=== PATIENT | male | born 2000 | race Caucasian/White ===

== ENCOUNTER 2022-04-27 10:49 | Outpatient (REF) | payer OTHER, SELFPAY ==
[2022-04-27 14:27] LABS: Hematocrit 47.6 % (42.0-52.0); Hemoglobin 16.2 g/dl (14.0-18.0); Mean Corpuscular Hemoglobin 27.9 pg (27.0-33.0); Mean Corpuscular Volume 81.9 fL (80.0-98.0); Mean Platelet Volume 11.7 fL (9.4-12.4); Platelet Count 257 X10*3/uL (160-400); Red Blood Count 5.81 X10*6/uL (4.60-5.80); Red Cell Distribution Width 13.3 % (11.0-16.0); White Blood Count 5.6 X10*3/uL (4.8-10.8)
[2022-04-27 15:08] LABS: Alanine Aminotransferase 21 U/L (0-40); Albumin Level 4.8 g/dL (3.5-5.0); Alkaline Phosphatase 80 U/L (39-117); Anion Gap 14 (12-20); Aspartate Amino Transferase 23 U/L (5-37); Bilirubin Total 1.5 mg/dL (0.0-1.0); Blood Urea Nitrogen 10 mg/dL (9-16); Calcium 10.2 mg/dL (8.4-10.2); Carbon Dioxide 28 mmol/L (22-29); Chloride 105 mmol/L (96-108); Cholesterol 141 mg/dL; Estimated Glomerular Filt Rate > 60; Glucose Fasting 95 mg/dL (60-99); HDL Cholesterol 58 mg/dL; LDL Cholesterol Calculated 76 mg/dl; Potassium 4.8 mmol/L (3.3-5.1); Sodium 142 mmol/L (135-145); Total Protein 7.7 g/dL (6.5-8.0); Triglycerides 36 mg/dL
[2022-04-27 15:13] LABS: TSH reflex Free T4 1.21 uIU/mL (0.32-4.0)
== END 2022-04-27 10:50 | disposition home or self-care (01) ==
LOC: HO.WFDLDS 10:49
PROVIDERS: Visit Provider Hospitalist
DX: Z00.00 Encounter for general adult medical examination without abnormal findings (principal)
CPT/HCPCS: 36415; 80053; 80061; 84443; 85027

== ENCOUNTER → 2022-05-10 13:54 | Outpatient (BNVA) | payer OTHER, SELFPAY | PROVIDERS: PCP Hospitalist; Visit Provider Physician Assistant | DX: D12.6 Benign neoplasm of colon, unspecified (principal); Z78.9 Other specified health status | CPT/HCPCS: 99202 ==

== ENCOUNTER 2022-10-20 15:02 | Outpatient (AMB) | payer OTHER, SELFPAY ==
--- NOTE | 2022-10-20 14:33 | A.OFFPC_ITS ---
Vital Signs 10/20/22 15:06 Height 5 ft 9 in Weight 162 lb 2 oz BMI 23.9 BP 122/74 Blood Pressure Location Lt brachial Position Sitting Respiration 12 Pulse 97 Pulse Source Pulse Oximeter Temp 98.7 F Temp Source Temporal Artery Scan Pulse Oximetry (%) 99 Oxygen Delivery Method Room Air Intake Visit Reasons: fu for ulcer colitis and weight Intake Note: Patient states he tried to go to Gastroenterology and wasnt seen there due to them not having an recycling operator. Bottle House Cleaners Supervisor Required: Yes Bottle House Cleaners Supervisor Name: Alberto ([id number]) Accompanied by: Self / Same As Patient Allergies No Known Allergies Allergy (Verified 10/20/22 15:22) Medication List - Last Reconciled 10/20/22 by Rhianna Palomares CNP bisacodyl (Dulcolax (bisacodyl)) 10 mg (2 x 5 mg) PO ONCE 1 day Tobacco use date assessed: 04/27/22 Dental Screening Dental Screen Date: 10/20/22 Did you have a dental visit in the last 12 months?: No Did you have a dental problem in the last 6 months where you did not have access to dental care?: No Was dental information given to patient?: Yes HPI HPI Comments History of Present Illness Details 22-year-old Somali-speaking male presents with complaints of intermittent right sided abdominal pain. He notes the pain is intermittent, started earlier this year, but has been more frequent in the past 2 months. He states the pain is sharp. He notes his symptoms do not occur every day. He denies He denies n/v/d, constipation, or me tala. He denies acute symptoms at this time. He established care with his PCP here on April 2022. 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 He was referred to [facility] and was seen in May 2022. He had no GI or general complaints during his recent GI visit. GI planned to schedule polyp surveillance. The patient is a poor historian for his PCP and GI. The hospice office coordinator contacted [facility] and was informed the pt refused doing a colonoscopy in September. He notes he declined testing because he already had it done in the [place]. He notes that sometime last month and this month, he attempted to call GI to reschedule but there was no cordwainer available for him to schedule the appointment. [facility] Medical History (Updated 10/20/22 @ 15:42 by Rhianna Palomares CNP) Ulcerative colitis with rectal bleeding Surgical History Hx of colonoscopy Family History Father Diabetes Maternal Uncle Colon cancer Social History Household Members: Family Housing: House (live with family) Alcohol intake: never Patient Tobacco Use Status: Never used Tobacco e-Cigarette/Vaping Use: Never Used service: No Current occupational status: unemployed Cognitive needs: No Hearing needs: No Vision needs: No Questionnaire Thrive Questionnaire Date Thrive assessed: 04/27/22 TELLO-7 AMB Questionnaire TELLO-7 Date TELLO - 7 assessed: 04/27/22 Source: Developed by Drs. Willy Mendoza, Lucrecia Beauchamp, Danny Solares and colleagues, with an educational darrius from [employer]. Review of Systems Const Details: Const Denies chills, Denies fatigue, Denies fever(s), Denies headache(s) and Denies weakness ENT Denies dizziness and Denies headache(s) Card Denies chest pain, Denies lightheadedness, Denies dyspnea and Denies other (Palpitations) Resp Denies cough, Denies dyspnea, Denies wheezing and Denies other ( shortness of b reath) GI Denies abdominal pain, Denies melena, Denies hematochezia, Denies change in bowel habits, Denies dyspepsia and Denies nausea Denies hematuria and Denies dysuria Musc Denies abnormal gait, Denies myalgias, Denies arthralgias, Denies numbness and Denies tingling Skin/Breast Denies rash, Denies unusual bruising and Denies wounds Neuro Denies abnormal gait, Denies dizziness, Denies headache(s), Denies memory loss, Denies numbness, Denies Sensory deficit (Neuro), Denies tingling and Denies weakness Psych Denies anxiety, Denies depression, Denies memory loss Endo Denies cold intolerance, Denies fatigue, Denies heat intolerance, Denies polydipsia and Denies polyuria Aller/Immun Denies wheezing Physical exam (Primary Care) Tobacco/Smoking Status: Tobacco use Status Tobacco use date assessed 04/27/22 10/20/22 14:35 Patient Tobacco Use Status Never used Tobacco 10/20/22 14:35 e-Cigarette/Vaping Use Never Used 10/20/22 14:35 Thrive Assessment: Date of Thrive Assessment Date Thrive assessed 04/27/22 10/20/22 14:35 Const Other: General: no acute distress and well developed Nutritional Appearance: well nourished Orientation/consciousness: patient oriented x3 HENMT Head: Yes normocephalic and Yes atraumatic Eyes General: appearance normal, both eyes and all related structures Pupils: Equal, round and reactive pupils present EOM: EOMs intact bilaterally Resp Effort & Inspection: normal respiratory effort Auscultation: clear to auscultation bilaterally Cardio Rate: regular rate Rhythm: regular rhythm Heart sounds: S1 normal heart sound present, S2 normal heart sound present, no gallops, no murmurs and no rubs GI Palpation (GI): No Abdominal aortic bruit present, Soft to palpation, nontender, No hepatosplenomegaly present and No Rebound tenderness present Auscultation: normal bowel sounds General: Yes no CVA tenderness Back/Spine/Pelvis Back: no CVA tenderness Cervical Spine: cervical ROM normal and No Cervical spine tenderness Thoracic/Lumbar Spine: thoraco-lumbar ROM normal, No pain with thoraco-lumbar ROM, No thoracic spinal tenderness and No lumbar spinal tenderness Extrem General: Yes normal to inspection, No edema and No calf tenderness Skin General: warm and dry. Normal skin color. Normal skin turgor Lesions: no lesions Rashes: no rashes Trauma: no lacerations or abrasions Wounds: no wounds Nails: normal Neuro General: patient oriented x3, gait normal and no focal neuro deficit Cranial nerves: Yes Equal, round and reactive pupils present Cognition (Neuro): normal cognition Gait exam (Neuro): Normal gait present Sensory Exam: No Sensory deficit (Neuro) Psych Appearance: grossly normal Affect: normal affect Attitude: cooperative Thought process: Normal thought process present Assessment and Plan Assessment & Plan (1) Abdominal pain: Code(s): R10.9 - Unspecified abdominal pain Plan: 22-year-old Somali-speaking male presents with complaints of intermittent right sided abdominal pain. He notes the pain is intermittent, started earlier this year, but has been more frequent in the past 2 months. He states the pain is sharp. He notes his symptoms do not occur every day. He denies He denies n/v/d, constipation, or melena. He denies acute symptoms at this time. The OA here will assist the patient in schedule an appointment with [facility] He is encouraged to follow-up with GI as planned Follow-up with PCP with new or worsening symptoms Verbalized understanding and agreed with treatment plan. cordwainer was utilized via electronic tablet. Medications: Refilled bisacodyl (Dulcolax (bisacodyl)) Take 2 tablets by mouth at 12:00pm the day before your procedure. 10 mg (2 x 5 mg) PO ONCE 1 day 2 tabs 0RF colonoscopy prep Z12.11 - Encounter for screening for malignant neoplasm of colon Coding Level of Care Code Est Pt Level 3 (32033) Diagnoses Abdominal pain R10.9
[2022-10-20 15:06] VITALS: BP 122/74; PULSE 97; RESP 12; TEMP 37.1; O2SAT 99; BMI 23.9
== END 2022-10-20 15:49 | disposition home or self-care (01) ==
PROVIDERS: PCP Hospitalist; Visit Provider Nurse Practitioner Family
DX: R10.9 Unspecified abdominal pain (principal)
CPT/HCPCS: 99213

== ENCOUNTER 2022-11-14 10:27 | Outpatient (AMB) | payer OTHER, SELFPAY ==
--- NOTE | 2022-11-14 10:26 | A.OFFVIS_ITS ---
Intake Vital Signs 11/14/22 10:27 Height 5 ft 9 in Weight 162 lb BMI 23.9 BP 118/80 Blood Pressure Location Lt brachial Position Sitting Intake Visit Reasons: pt req follow up Intake Note: Patient here for follow up. CC: Intermittent right sided abdominal pain. Patient reports this has been on and off for approximately 4-5 months. Patient reports the worse pain is a 5/10. Allergies No Known Allergies Allergy (Verified 11/14/22 10:28) Medication List - Last Reconciled 11/14/22 by Liberty Delgado RN HPI HPI Comments History of Present Illness Details A 22 y/o male seen 05/2022-was to be scheduled for 1 year repeat colonoscopy-he instead went to [place] He had repeat colonoscopy 06/2022- [place]-path shows chronic colitis with edema-he was given an unknown medication-for 1 month- He now has intermittent RLQ pain-was QOD- but now not too much- [facility] Medical History (Updated 11/14/22 @ 11:06 by Sita Cota PA-C) Ulcerative colitis with rectal bleeding Surgical History (Updated 11/14/22 @ 11:01 by Sita Cota PA-C) Hx of colonoscopy Family History Father Diabetes Maternal Uncle Colon cancer Social History Household Members: Family Housing: House Alcohol intake: never Patient Tobacco Use Status: Never used Tobacco e-Cigarette/Vaping Use: Never Used service: No Current occupational status: unemployed Cognitive needs: No Hearing needs: No Vision needs: No Physical Exam Vital Signs: Last Vital Signs BP 118/80 11/14/22 10:27 BMI result Body Mass Index 23.9 Const General: healthy appearing, comfortable and no acute distress Orientation/consciousness: patient oriented x3 Limitations: language barrier and other limitations (Poor historian) Eyes Sclerae: sclerae normal Resp Effort & Inspection: normal respiratory effort and able to speak in complete sentences Auscultation: clear to auscultation bilaterally, no rales, no rhonchi and no wheezes Cardio Rate: regular rate and tachycardic (APR 104) Heart sounds: S1 normal heart sound present and S2 normal heart sound present GI Palpation (GI): Soft to palpation, nontender and no guarding Auscultation: normal bowel sounds Skin General skin exam: no rashes or lesions noted Neuro General: patient oriented x3 Extrem General: Yes full ROM Psych Appearance: grossly normal and well kempt Assessment & Plan Assessment & Plan (1) Ulcerative colitis with rectal bleeding: Comment: GI history unclear patient unable to give details With help of Tristanian interpretation- Reviewed procedure report pathology-copies to go to chart Code(s): K51.911 - Ulcerative colitis, unspecified with rectal bleeding Plan: Follow-up with MD for plan of care (2) Poor historian: Comment: Review history not consistent with previous history given with PCP-details are unclear On physical exam abdomen soft, nontender- Code(s): Z78.9 - Other specified health status (3) Abdominal pain: Comment: History tubulovillous adenoma 322, history of chronic colitis for 2022- Unknown treatment, patient unable to give details- Not great historian Needs further assessment- Will update labs Scheduled to be seen by MD that treats IBD Patient instructed to bring along procedure reports with pathology as well as medication list Code(s): R10.9 - Unspecified abdominal pain Plan Please schedule new patient visit for colitis with MD, Dr. Maddy OSUNA or Dr. Castañeda- needs energy trading analyst, 30 minutes, not a great historian Patient instructed to bring medication along with him Reports and pathology as well Orders: Orders Comprehensive Met. Panel Today K51.911 - Ulcerative colitis, unspecified with rectal bleeding C Reactive Protein Today K51.911 - Ulcerative colitis, unspecified with rectal bleeding Erythrocyte Sedimentation Rate Today K51.911 - Ulcerative colitis, unspecified with rectal bleeding Complete Blood Count Auto Diff Today K51.911 - Ulcerative colitis, unspecified with rectal bleeding Patient Instructions: Labs today CBC CMP Patient instructed to bring medications along with him Reports and pathology as well Coding Level of Care Code Est Pt Level 4 (96699) Diagnoses Ulcerative colitis with rectal bleeding K51.911 Poor historian Z78.9 Abdominal pain R10.9 Time Spent (min) 20
[2022-11-14 10:27] VITALS: BP 118/80; BMI 23.9
== END 2022-11-14 10:43 | disposition home or self-care (01) ==
PROVIDERS: PCP Hospitalist; Visit Provider Physician Assistant
DX: K51.911 Ulcerative colitis, unspecified with rectal bleeding (principal); Z78.9 Other specified health status; R10.9 Unspecified abdominal pain
CPT/HCPCS: 99214

== ENCOUNTER → 2022-11-14 10:27 | Outpatient (BNVA) | payer OTHER, SELFPAY | PROVIDERS: PCP Hospitalist; Visit Provider Physician Assistant | DX: K51.911 Ulcerative colitis, unspecified with rectal bleeding (principal); R10.9 Unspecified abdominal pain; Z78.9 Other specified health status | CPT/HCPCS: 99212 ==

== ENCOUNTER 2022-11-14 11:04 | Outpatient (REF) | payer OTHER, SELFPAY ==
[2022-11-14 14:30] LABS: MANUAL DIFF FLAG NO
[2022-11-14 14:45] LABS: Basophils Percent Auto 0.4 % (0-2); Eosinophils Absolute Auto 0.1 X10*3/uL (0.0-0.4); Eosinophils Percent Auto 1.5 % (0-4); Hematocrit 48.5 % (42.0-52.0); Hemoglobin 16.3 g/dl (14.0-18.0); Imm Gran Abs Auto 0.01 X10*3/uL (0.00-0.03); Imm Gran Pct Auto 0.2 % (0.0-0.4); Lymphocytes Absolute Auto 1.9 X10*3/uL (1.2-4.9); Mean Corpuscular HGB Conc 33.6 g/dl (31.0-36.0); Mean Corpuscular Hemoglobin 27.5 pg (27.0-33.0); Mean Corpuscular Volume 81.9 fL (80.0-98.0); Mean Platelet Volume 12.1 fL (9.4-12.4); Monocytes Absolute Auto 0.5 X10*3/uL (0.1-1.2); Monocytes Percent Auto 9.5 % (2-11); Neutrophils Absolute Auto 2.9 x10*3/uL (2.0-8.3); Neutrophils Percent Auto 53.4 % (45-73); Platelet Count 222 X10*3/uL (160-400); Red Blood Count 5.92 X10*6/uL (4.60-5.80); Red Cell Distribution Width 13.4 % (11.0-16.0); White Blood Count 5.5 X10*3/uL (4.8-10.8)
[2022-11-14 15:27] LABS: Erythrocyte Sedimentation Rate 5 MM/HR (0-15)
[2022-11-14 15:28] LABS: Alanine Aminotransferase 28 U/L (0-40); Albumin Level 4.9 g/dL (3.5-5.0); Alkaline Phosphatase 75 U/L (39-117); Anion Gap 12 (12-20); Aspartate Amino Transferase 37 U/L (5-37); Bilirubin Total 0.8 mg/dL (0.0-1.0); Blood Urea Nitrogen 11 mg/dL (9-16); C Reactive Protein 1.08 mg/dL (< or = 0.50); Calcium 10.5 mg/dL (8.4-10.2); Carbon Dioxide 29 mmol/L (22-29); Chloride 104 mmol/L (96-108); Estimated Glomerular Filt Rate > 60; Glucose Random 90 mg/dL (60-115); Potassium 4.1 mmol/L (3.3-5.1); Sodium 141 mmol/L (135-145); Total Protein 8.2 g/dL (6.5-8.0)
== END 2022-11-14 11:05 | disposition home or self-care (01) ==
LOC: HO.WFDLDS 11:04
PROVIDERS: Visit Provider Physician Assistant
DX: K51.911 Ulcerative colitis, unspecified with rectal bleeding (principal)
CPT/HCPCS: 36415; 80053; 85025; 85652; 86140

== ENCOUNTER 2022-12-04 11:23 | Outpatient (AMB) | payer OTHER, SELFPAY ==
--- NOTE | 2022-12-04 11:27 | A.OFFVIS_ITS ---
Intake Vital Signs 12/04/22 11:31 Height 5 ft 9 in Weight 160 lb 14.999 oz BMI 23.8 BP 131/73 Blood Pressure Location Lt brachial Position Sitting Pulse 113 H Intake Visit Reasons: ? UC - 2nd Opinion Intake Note: Miguel presents in the office as a follow up for UC - 2nd opinion. 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 Pt reports having bleeding from rectum x 1 year. Apr 2021: Had a colo which showed a large polyp in the rectum ?? 5 cm in size per the report from which biopsies were taken. Path showed tubullovillous adenoma. May 2021: subsequently had surgical resection of that polyp through Dr Hollis Mann (colorectal surgery). Was asked to return within a year for repeat colo. June 2022: Focal redness in rectum spanning 5-7 cm (vs 5-7 cm from anal verge - unclear based on wording) which was biopsied - chronic mild nonspecific colitis. 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 Currently, does not report any abd pain, rectal pain, blood on defecation. Has formed BMs 1-2 times a day. No night time sx. No urgency. Labs from last month without any anemia. Fam hx of CRC in uncle but not in first degree relatives. No fam hx of UC or IBD in FDRs. PFSH Medical History Ulcerative colitis with rectal bleeding Surgical History Hx of colonoscopy Family History Father Diabetes Maternal Uncle Colon cancer Social History Household Members: Family Housing: House Alcohol intake: never Patient Tobacco Use Status: Never used Tobacco e-Cigarette/Vaping Use: Never Used service: No Current occupational status: unemployed Cognitive needs: No Hearing needs: No Vision needs: No Review of Systems Const All systems reviewed & are unremarkable except as noted in HPI and below Physical Exam Vital Signs: Last Vital Signs Pulse 113 H 12/04/22 11:31 BP 131/73 12/04/22 11:31 BMI result Body Mass Index 23.8 Gen appear: NAD HEENT: nonicteric, no cervical lymphadenopathy Chest: CTA CVS: Regular S1/S2 Abd: soft, nontender, nondistended, bowel sounds + Ext: no peripheral edema Neuro: A/Ox3, noted to move all extremities spontaneously Psych: interacting appropriately Assessment & Plan Assessment & Plan (1) Villous adenoma: Code(s): D48.9 - Neoplasm of uncertain behavior, unspecified (2) Ulcerative colitis with rectal bleeding: Code(s): K51.911 - Ulcerative colitis, unspecified with rectal bleeding Plan Reports of the colonoscopies + path in Arabic were reviewed with the help of toolroom checker and the language does not seem to be clear on the follow up colonoscopy re the area of redness if that is present at the site of previous polyp/surgery vs new finding. 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 Will only need a flex sig as abnormality was present in distal rectum. In the meantime, labs ordered including fecal calpro, hep serologies and TSPOT in case UC confirmed to allow for medical management. Plan: - Flex sig in the next few weeks - Labs ordered - Follow up after flex sig. Orders: Orders Thiopurine Methyltransferase Today K5 - Ulcerative colitis, unspecified with rectal bleeding Hepatitis B Core Antibody Today K5 - Ulcerative colitis, unspecified with rectal bleeding Hepatitis B Surface Antigen Today K5 - Ulcerative colitis, unspecified with rectal bleeding HIV Ab/Ag Today K5 - Ulcerative colitis, unspecified with rectal bleeding T Spot TB Today K5 - Ulcerative colitis, unspecified with rectal bleeding Calprotectin, Fecal Today K5 - Ulcerative colitis, unspecified with rectal bleeding C Reactive Protein Today K5 - Ulcerative colitis, unspecified with rectal bleeding Immunoglobulin A Today K5 - Ulcerative colitis, unspecified with rectal bleeding Transglutaminase IgA Today K5 - Ulcerative colitis, unspecified with rectal bleeding Hepatitis A IgG Today - Ulcerative colitis, unspecified with rectal bleeding Hepatitis B Surface Antibody Today K5 - Ulcerative colitis, unspecified with rectal bleeding Hepatitis B Viral DNA Qn Today - Ulcerative colitis, unspecified with rectal bleeding Hepatitis C Antibody Today - Ulcerative colitis, unspecified with rectal bleeding Medications: New sodium phosphates 19-7 gram/118 mL (Fleet Enema) 118 mL FL BEDTIME 133 mL 0RF sigmoidoscopy Coding Level of Care Code Est Pt Level 4 (62232) Diagnoses Villous adenoma D48.9 Ulcerative colitis with rectal bleeding K5
[2022-12-04 11:31] VITALS: BP 131/73; PULSE 113; BMI 23.8
== END 2022-12-04 12:44 | disposition home or self-care (01) ==
PROVIDERS: PCP Hospitalist; Visit Provider Internal Medicine
DX: D48.9 Neoplasm of uncertain behavior, unspecified (principal); K51.911 Ulcerative colitis, unspecified with rectal bleeding
CPT/HCPCS: 99214

== ENCOUNTER → 2022-12-04 11:23 | Outpatient (BNVA) | payer OTHER, SELFPAY | PROVIDERS: PCP Hospitalist; Visit Provider Internal Medicine | DX: K51.911 Ulcerative colitis, unspecified with rectal bleeding (principal); D48.9 Neoplasm of uncertain behavior, unspecified | CPT/HCPCS: 99212 ==

== ENCOUNTER 2023-02-06 10:12 | Day surgery (SDC) | payer OTHER, SELFPAY ==
[2023-02-06 10:43] VITALS: BP 139/79; PULSE 102; RESP 20; TEMP 36.1; O2SAT 97
[2023-02-06 10:44] VITALS: BMI 25.3
--- NOTE | 2023-02-06 10:47 | HO.ANESPROP2 ---
HPI - Anesthesia Eval Consult details Narrative: Flex sig for rectal bleeding PMFSH Active Problems Active Problems: All Active Problems (Updated 12/04/22 @ 16:33 by Rupali Zamora MD) Villous adenoma (Acute) Abdominal pain (Acute) Poor historian (Acute) Abnormal colonoscopy (Acute) Elevated bilirubin (Acute) Normal physical exam (Acute) Ulcerative colitis with rectal bleeding (Acute) Past Medical History Medical History Ulcerative colitis with rectal bleeding Family History Family History Father Diabetes Maternal Uncle Colon cancer Family history of problems with anesthesia: No Surgical History Surgical History Hx of colonoscopy History of Problems with Anesthesia: No Social History Social History Household Members: Family Housing: House Alcohol intake: never Patient Tobacco Use Status: Never used Tobacco e-Cigarette/Vaping Use: Never Used Advance Directives: No Advance Directives Information Provided: Yes service: No Current occupational status: unemployed Cognitive needs: No Hearing needs: No Vision needs: No Meds Allergies Allergy/AdvReac Type Severity Reaction Status Date / Time No Known Allergies Allergy Verified 12/04/22 11:32 Exam Height,Weight and Vital Signs: Last Vital Signs Temp 97 F 02/06/23 10:43 Pulse 102 H 02/06/23 10:43 Resp 20 02/06/23 10:43 BP 139/79 02/06/23 10:43 Pulse Ox 97 02/06/23 10:43 O2 Del Method Room Air 02/06/23 10:43 Airway Mallampati Class: II TM Dist: >3cm Heart: rrr Lungs: cta Assessment and Plan Assessment Anesthesia Assessment: Anesthesia Plan Discussed and Chart Reviewed Final Anesthetic Review Family History of Problems with Anesthesia: No History of Problems with Anesthesia: No NPO: Yes ASA Class: II Final Preanesthetic Review: No Changes in Pt Med Stat, Meds/Allgs Chart Reviewed, Consent Obtained/Reviewed and Anes Risks/Benef Reviewed Patient Risk: Low Procedure Risk: Low Anesthetic Plan Anesthetic Plan: MAC: and Agree w/ Assess. and Plan Disposition: Standard PACU
[2023-02-06] MEDS: Sodium Phosphate,Mono-Dibasic 133 ML ENEMA PR (11:03)
[2023-02-06] MEDS: Lactated Ringers 1,000 ML 50 ML IVCONT (11:03)
[2023-02-06 11:09] VITALS: BMI 23.9
--- NOTE | 2023-02-06 11:14 | PC.NURSE ---
fleets with minimal results yellow liquid light
--- NOTE | 2023-02-06 12:23 | MHC.SHP ---
Pre-Procedural Eval Section A Date of Service: 02/06/23 Section B Chief Complaint: Ulcerative colitis,Neoplasm of uncertain behavior, Relevant Family History (Specify if Yes): No Relevant Social History: None Present Medications: see Short Stay Collaborative assessment Medical History: Significant History (Ulcerative colitis with rectal bleeding) History of Previous Operations: Relevant previous surgery/procedure and date(s) (colonoscopy) Allergies: Allergies Allergy/AdvReac Type Severity Reaction Status Date / Time No Known Allergies Allergy Verified 12/04/22 11:32 Review of Systems Sugical H&P ROS: Negative: Constitution, Cardiovascular, Respiratory, Neurological, Psychiatric, Hem-Onc, Allergic/Immunologic, Gastrointestinal, Genitourinary, Musculoskeletal, Integumentary, Endocrine and Eyes/Ears/Nose/Throat Exam Surgical H&P Exam: Normal: HEENT, Normal: Heart, Normal: Lungs, Normal: Extremities, Normal: Abdomen, Normal: Skin and Normal: Neurological Plan Diagnosis/Plan: Unchanged I have reviewed the history and physical and performed a pertinent physical examination on my patient. No changes have occurred unless specified. Time Spent With Patient Time: Total time managing care of this patient today ____ minutes.
--- NOTE | 2023-02-06 12:24 | W.PM.OPN ---
Operative Note Operative Note Date of Service: 02/06/23 Narrative: Operative Information Procedure Description: sigmoidoscopy Indication: rectal bleeding Anesthesia: MAC Sigmoidoscopy Instrument: Adult colonoscope Colonoscopy Monitoring: Vital signs and clinical assessment, continuous EKG monitoring, Pulse oximetry, Carbon Dioxide monitoring and blood pressure monitoring were done throughout the procedure. Procedure: The patient was placed in the left lateral decubitis position and pre-procedure medications were administered. After a digital rectal examination of the ano-rectum, the video colonoscope was inserted into the rectum and advanced through the colon to the transverse colon. The scope was slowly withdrawn in a retrograde panoramic fashion and the colon mucosa was carefully examined including a retroflexed view of the rectum. Findings and interventions are described below. Procedure Difficulty: esy Findings: Ileum: bx taken Random colon bx taken from transverse, left and rectum Transverse Colon -normal Descending Colon:normal Sigmoid Colon: normal Rectum: Retroflexion with small internal hemorrhoids, grade I Anorectum - normal Colon preparation: Impression and Post Procedure Diagnosis: internal hemorrhoids Plan: normal appearing mucosa, await bx results Above findings were reviewed with the patient and relevant handouts were provided if indicated.
[2023-02-06 13:11] VITALS: BP 120/58; PULSE 93; RESP 16; TEMP 36.6; O2SAT 99
[2023-02-06 13:26] VITALS: BP 125/60; PULSE 95; RESP 16; O2SAT 99
[2023-02-06 13:41] VITALS: BP 136/92; PULSE 95; RESP 16; TEMP 36.6; O2SAT 99
== END 2023-02-06 14:35 | disposition home or self-care (01) ==
PROVIDERS: PCP Family Medicine; Visit Provider Internal Medicine Gastroenterology
PROC: 0DJD8ZZ Inspection of Lower Intestinal Tract, Via Natural or Artificial Opening Endoscopic (ICD-10-PCS; CPT 45330; principal; 2023-02-06 11:50)
DX: K51.911 Ulcerative colitis, unspecified with rectal bleeding (principal); Z86.010 Personal history of colon polyps; D37.5 Neoplasm of uncertain behavior of rectum; K64.0 First degree hemorrhoids
CPT/HCPCS: 45331; 88305; J2704

== ENCOUNTER → 2023-02-06 10:12 | Outpatient (BNV) | payer OTHER, SELFPAY | PROVIDERS: PCP Family Medicine; Visit Provider Internal Medicine Gastroenterology | DX: K62.5 Hemorrhage of anus and rectum (principal); K64.0 First degree hemorrhoids | CPT/HCPCS: 45331 ==

== ENCOUNTER 2023-02-21 09:20 | Outpatient (AMB) | payer OTHER, SELFPAY ==
--- NOTE | 2023-02-21 09:38 | A.OFFVIS_ITS ---
Intake Vital Signs 02/21/23 09:39 Height 5 ft 9 in Weight 160 lb BMI 23.6 BP 134/72 Blood Pressure Location Lt brachial Position Sitting Pulse 82 Intake Visit Reasons: s/P Sigmoid: Dr. Castañeda Intake Note: Patient follow up for S/P Sigmoid results. Patient denies any GI issues. Briquette Machine Operator Required: Yes Briquette Machine Operator Name: Sheila [facility] Accompanied by: Self / Same As Patient Allergies No Known Allergies Allergy (Verified 02/21/23 09:37) HPI HPI Comments History of Present Illness Details A 22 y/o male initially seen after previous GI work-up in the DR. With diagnosis of colitis and history of tubulovillous adenoma seen by me- He was then referred for consult with Dr. Zamora for hx colitis and colon polyps- seen in December- As he follows up today he said he did not do blood work - he is fasting today to do it. She had referred him for sigmoidoscopy was performed by Dr. Castañeda. He is here today for follow-up- Reviewed procedure report, and pathology He has no further rectal bleeding-diffuse abdominal discomfort- wanders- no other assoc. sx- no fever, change in stool or appetite comes and goes, nothing specific-unable to quantify appetite good, bowels are normal no bleeding No nausea, vomiting, dyspepsia, bloating, hematemesis, hematochezia fever or chills PFSH Medical History (Updated 02/21/23 @ 13:34 by Sita Cota PA-C) Ulcerative colitis with rectal bleeding Surgical History Hx of sigmoidoscopy Hx of colonoscopy Family History Father Diabetes Maternal Uncle Colon cancer Social History Household Members: Family Housing: House Alcohol intake: never Patient Tobacco Use Status: Never used Tobacco e-Cigarette/Vaping Use: Never Used service: No Current occupational status: unemployed Cognitive needs: No Hearing needs: No Vision needs: No Review of Systems Const All systems reviewed & are unremarkable except as noted in HPI and below GI Reports abdominal pain (vague, intermittent- ), Denies bloating, Denies hematochezia, Denies change in bowel habits, Denies heartburn, Denies nausea and Denies vomiting Physical Exam Vital Signs: Last Vital Signs Pulse 82 02/21/23 09:39 BP 134/72 02/21/23 09:39 BMI result Body Mass Index 23.6 Const General: cooperative, healthy appearing, comfortable and no acute distress Orientation/consciousness: patient oriented x3 Limitations: language barrier Eyes Sclerae: sclerae normal Resp Effort & Inspection: normal respiratory effort and able to speak in complete sentences Auscultation: clear to auscultation bilaterally and no wheezes Cardio Rate: regular rate Rhythm: regular rhythm Heart sounds: S1 normal heart sound present and S2 normal heart sound present GI Inspection: Yes normal to inspection Palpation (GI): Soft to palpation and nontender Auscultation: normal bowel sounds Skin General skin exam: no rashes or lesions noted Neuro General: patient oriented x3 Extrem General: Yes full ROM Psych Appearance: grossly normal and well kempt Mental Status: mental status grossly normal Speech and movement: Normal speech and movement present Affect: normal affect Attitude: cooperative Thought process: Normal thought process present Thought content: Normal thought content present Results Reviewed Results Reviewed: Impression and Post Procedure Diagnosis: internal hemorrhoids Plan: normal appearing mucosa, await bx results unt #: [id number] Copies to: Thanh Coy MD MR #: [id number] Status: [facility] Collected: 02/06/23 Location: [facility] Received: 02/06/23 Diagnosis A. Terminal ileum, biopsy: Terminal ileal mucosa within normal limits. B. Colon, transverse, biopsy: Colonic mucosa within normal limits. C. Colon, left, biopsy: Colonic mucosa within normal limits. D. Rectum, biopsy: Rectal mucosa within normal limits. COMMENT: No dysplasia is identified. Clinical History Pre-Op Dx: Ulcerative colitis with rectal bleeding, hx/o colon polyps Post-Op Dx: Small hemorrhoids Microscopic Description A-D. Microscopic sections reviewed. Material Received A. TI bx's B. Transverse colon bx's C. Left-sided colon bx's D. Rectum bx's Gross Description Received in 4 parts. Part A: Received in formalin labeled T1 biopsies are two glistening, semitranslucent, soft, hyperemic, epstein-pink, irregular tissue fragments, each measuring 0.2 cm, in greatest dimension, which are submitted in toto in a single cassette labeled A. Part B: Received in formalin labeled transverse colon biopsies are 4 glistening, semitranslucent, soft, hyperemic and congested, epstein and epstein-pink, irregular tissue fragments, ranging from 01 - 0.3 cm, in greatest dimension, which are submitted in toto in a single cassette labeled B. Part C: Received in formalin labeled left sided colon biopsies are 3 glistening, semitranslucent, soft, hyperemic and congested, epstein and epstein-pink, irregular tissue fragments, ranging from 0.1 - 0.2 cm, in greatest dimension, which are submitted in toto in a single cassette labeled C. Patient: Miguel Rosa Age/Sex: 22/M MR#: [id number] Page 1 of 2 Assessment & Plan Assessment & Plan (1) Internal hemorrhoids: Code(s): K64.8 - Other hemorrhoids Plan: Maintain high-fiber diet Overweight straining Plan Follow through complete labs for workup Follow back with Dr. Zamora Maintain high-fiber diet Avoid straining Encouraged to call questions or concerns Patient Instructions: 22-year-old male unclear GI history, follows up after recent sigmoidoscopy Reviewed procedure report and pathology Follow through complete labs for workup Follow back with Dr. Zamora Maintain high-fiber diet Avoid straining Encouraged to call questions or concerns Coding Level of Care Code Est Pt Level 3 (64560) Diagnoses Internal hemorrhoids K64.8 Time Spent (min) 25 Comment Briquette Machine Operator
[2023-02-21 09:39] VITALS: BP 134/72; PULSE 82; BMI 23.6
== END 2023-02-21 10:14 | disposition home or self-care (01) ==
PROVIDERS: PCP Hospitalist; Visit Provider Physician Assistant
DX: K64.8 Other hemorrhoids (principal)
CPT/HCPCS: 99213

== ENCOUNTER → 2023-02-21 09:20 | Outpatient (BNVA) | payer OTHER, SELFPAY | PROVIDERS: PCP Hospitalist; Visit Provider Physician Assistant | DX: K64.8 Other hemorrhoids (principal) | CPT/HCPCS: 99212 ==

== ENCOUNTER 2023-04-09 08:46 | Outpatient (REF) | payer OTHER, SELFPAY ==
[2023-04-09 11:01] LABS: Hepatitis A Antibody IgG Nonreactive (Nonreactive); ~Hepatitis A Antibody IgG 0.48 S/CO (0.00-0.99)
[2023-04-09 11:02] LABS: HBS Num1 1.66 mIU/mL (0-7.99); HBc Num1 0.08 S/CO (0.00-0.79); HBsAGNum1 0.53 S/CO (0.00-0.99); HIV AB/AG Nonreactive (Nonreactive); HIV Num 1 0.07 S/CO (0.00-0.99); Hepatitis B Core Antibody Nonreactive (Nonreactive); Hepatitis B Surface Antigen Negative (Negative); ~HepC Num1 0.06 S/CO (0.00-0.79); ~Hepatitis B Surface Antibody NONREACTIVE (Nonreactive); ~Hepatitis C Antibody Nonreactive (Nonreactive)
[2023-04-10 12:43] LABS: Transglutaminase IgA <1.0 U/mL
[2023-04-10 13:33] LABS: Immunoglobulin A 275 mg/dL (47-310)
[2023-04-11 14:04] LABS: Hepatitis B Viral DNA Qn - cp NOT DETECTED Log IU/mL (NOT DETECTED); Hepatitis B Viral DNA Qn-IU/mL NOT DETECTED (NOT DETECTED)
== END 2023-04-09 08:47 | disposition home or self-care (01) ==
LOC: HO.LAB 08:46
PROVIDERS: PCP Hospitalist; Visit Provider Internal Medicine
DX: Z11.4 Encounter for screening for human immunodeficiency virus [HIV] (principal); K51.911 Ulcerative colitis, unspecified with rectal bleeding; R10.11 Right upper quadrant pain; D48.9 Neoplasm of uncertain behavior, unspecified
CPT/HCPCS: 36415; 82784; 86364; 86704; 86706; 86708; 86803; 87340; 87389; 87517; 99212

== ENCOUNTER 2023-04-09 08:46 | Outpatient (AMB) | payer OTHER, SELFPAY ==
[2023-04-09 08:52] VITALS: BP 125/74; PULSE 98; BMI 24.2
--- NOTE | 2023-04-09 08:52 | MHC.OFFVIS ---
Intake Vital Signs 04/09/23 08:52 Height 5 ft 9 in Weight 164 lb 0.383 oz BMI 24.2 BP 125/74 Blood Pressure Location Rt brachial Position Sitting Pulse 98 Intake Visit Reasons: Follow up UC Intake Note: Miguel returns to in office visit today in follow up of labs and UC. CC: Patient reports he had rectal bleeding last week x2 days. Per patient he was not able to complete labs but will go today after appt. He also c/o constipatin, RUQ abdominal pain, and gas sometimes. Jack Winder Required: Yes Accompanied by: Self / Same As Patient Allergies No Known Allergies Allergy (Verified 04/09/23 08:59) HPI HPI Comments History of Present Illness Details 22 y.o M with PMH of large TVA who is here for follow up. 12/04/22: Pt reports having bleeding from rectum x 1 year. Apr 2021: Had a colo which showed a large polyp in the rectum ?? 5 cm in size per the report from which biopsies were taken. Path showed tubullovillous adenoma. May 2021: subsequently had surgical resection of that polyp through Dr Hollis Mann (colorectal surgery). Was asked to return within a year for repeat colo. June 2022: Focal redness in rectum spanning 5-7 cm (vs 5-7 cm from anal verge - unclear based on wording) which was biopsied - chronic mild nonspecific colitis. Was prescribed tylenol and 3 days of dexamethasone 0.5mg - which the pt says he was told it was for healing but has not been on any terminal block assembler steroids. Currently, does not report any abd pain, rectal pain, blood on defecation. Has formed BMs 1-2 times a day. No night time sx. No urgency. Labs from last month without any anemia. Fam hx of CRC in uncle but not in first degree relatives. No fam hx of UC or IBD in FDRs. 02/06/23: [place] (Dr Castañeda) internal hemorrhoids normal appearing mucosa, await bx results Path: A. Terminal ileum, biopsy: Terminal ileal mucosa within normal limits. B. Colon, transverse, biopsy: Colonic mucosa within normal limits. C. Colon, left, biopsy: Colonic mucosa within normal limits. D. Rectum, biopsy: Rectal mucosa within normal limits. COMMENT: No dysplasia is identified 04/09/23: Reports no lower GI sx such as diarrhea or blood in stool. Reports occasional abdominal discomfort ajit on right side assoc with bloating that is typically postprandial. No NSAID use. Pain goes away after passing gas or BM. [facility] Medical History Ulcerative colitis with rectal bleeding Surgical History Hx of sigmoidoscopy Hx of colonoscopy Family History Father Diabetes Maternal Uncle Colon cancer Social History Household Members: Family Housing: House Alcohol intake: never Patient Tobacco Use Status: Never used Tobacco e-Cigarette/Vaping Use: Never Used service: No Current occupational status: unemployed Cognitive needs: No Hearing needs: No Vision needs: No Review of Systems Const All systems reviewed & are unremarkable except as noted in HPI and below Physical Exam Vital Signs: Last Vital Signs Pulse 98 04/09/23 08:52 BP 125/74 04/09/23 08:52 BMI result Body Mass Index 24.2 Gen appear: NAD HEENT: nonicteric, no cervical lymphadenopathy Chest: CTA CVS: Regular S1/S2 Abd: soft, nontender, nondistended, bowel sounds + Ext: no peripheral edema Neuro: A/Ox3, noted to move all extremities spontaneously Psych: interacting appropriately Assessment & Plan Assessment & Plan (1) Right upper quadrant pain: Code(s): R10.11 - Right upper quadrant pain Plan: Sx consistent with IBS. Will check labs for celiac, and r/o gallstones with US. Plan: - Low FODMAP diet discussed, handout given - Add fiber - Labs ordered from last visit - US Abd ordered Follow up contingent on results of above (2) Villous adenoma: Code(s): D48.9 - Neoplasm of uncertain behavior, unspecified Plan: Recommend repeat colo in 5 years i.e by end of 2027. If no recurrence, can then resume normal screening times and intervals. Orders: Orders US abdomen complete Today R10.11 - Right upper quadrant pain Coding Level of Care Code Est Pt Level 4 (51618) Diagnoses Right upper quadrant pain R10.11 Villous adenoma D48.9
== END 2023-04-09 09:36 | disposition home or self-care (01) ==
PROVIDERS: PCP Hospitalist; Visit Provider Internal Medicine
DX: R10.11 Right upper quadrant pain (principal); D48.9 Neoplasm of uncertain behavior, unspecified
CPT/HCPCS: 99214

== ENCOUNTER 2023-04-12 08:24 | Outpatient (REF) | payer OTHER, SELFPAY ==
--- NOTE | ~2023-04-12 | US_ITS ---
EXAMINATION: US ABDOMEN COMPLETE CLINICAL INFORMATION: Right upper quadrant pain. COMPARISON: None available. TECHNIQUE: Real-time imaging of the abdominal viscera. FINDINGS: PANCREAS: Largely obscured by overlapping bowel gas. ABDOMINAL AORTA: The proximal, mid, and distal segments are normal in caliber. INFERIOR VENA CAVA: Visualized portions are normal. LIVER: The liver is normal in size. The liver contour is normal. There is diffuse increased liver parenchymal echogenicity. No focal hepatic lesion. There is no intrahepatic biliary duct dilatation seen. GALLBLADDER: The gallbladder is physiologically distended without evidence of stones, sludge, wall thickening or pericholecystic fluid. A 3 mm nonmobile polyp is seen. COMMON BILE DUCT: Normal in caliber measuring 0.3 cm in diameter. RIGHT KIDNEY: Normal. No hydronephrosis. No renal calculi or focal parenchymal lesions. The kidney measures 10.5 cm in maximum dimension. LEFT KIDNEY: Normal. No hydronephrosis. No renal calculi or focal parenchymal lesions. The kidney measures 10.0 cm in maximum dimension. SPLEEN: Normal. The spleen measures 10.4 cm in maximum dimension. FREE FLUID: None. US/US abdomen complete IMPRESSION: 1. There is generalized increase in hepatic echotexture, consistent with fatty infiltration or hepatocellular disease. Please correlate clinically. No focal hepatic mass or intrahepatic biliary dilatation is seen. 2. A 3 mm nonmobile gallbladder polyp is seen. 3. Technically limited ultrasound examination of the pancreas.
== END 2023-04-12 08:25 | disposition home or self-care (01) ==
LOC: HO.US 08:24
PROVIDERS: PCP Nurse Practitioner Family; Visit Provider Internal Medicine
DX: R10.11 Right upper quadrant pain (principal)
CPT/HCPCS: 76700

== ENCOUNTER 2023-11-07 08:24 | Outpatient (REF) | payer OTHER, SELFPAY ==
--- NOTE | ~2023-11-07 | US_ITS ---
EXAMINATION: US ABDOMEN LIMITED CLINICAL INFORMATION: Cholesterolosis of the gallbladder. COMPARISON: None available. TECHNIQUE: Real-time imaging of the right upper quadrant abdominal viscera. FINDINGS: PANCREAS: Echotexture is somewhat heterogeneous, possibly related to fatty infiltration. No focal mass or ductal dilatation is seen. There is no peripancreatic fluid. LIVER: The liver is normal in size. The liver contour is normal. There is heterogeneous echotexture, with pericholecystic sparing. No focal hepatic lesion. There is no intrahepatic biliary duct dilatation seen. GALLBLADDER: A 3 mm nonmobile polyp is seen. The gallbladder is physiologically distended without evidence of stones, sludge, wall thickening or pericholecystic fluid. COMMON BILE DUCT: Normal in caliber measuring 0.2 cm in diameter. RIGHT KIDNEY: Normal. No hydronephrosis. No renal calculi or focal parenchymal lesions. The kidney measures 10.6 cm in maximum dimension. FREE FLUID: None. US/US abdomen limited IMPRESSION: 1. There is heterogeneously increased hepatic echotexture, consistent with fatty infiltration or hepatocellular disease. Please correlate clinically. Characteristic pericholecystic sparing favors fatty infiltration. No focal hepatic mass or intrahepatic biliary dilatation is seen. 2. A 3 mm nonmobile gallbladder polyp is of incidental note. Electronically signed by: Feliberto Campos MD 11/13/2023 04:37 PM EDT
== END 2023-11-07 08:25 | disposition home or self-care (01) ==
LOC: HO.US 08:24
PROVIDERS: PCP Nurse Practitioner Family; Visit Provider Internal Medicine
DX: K82.4 Cholesterolosis of gallbladder (principal)
CPT/HCPCS: 76705

== ENCOUNTER 2024-01-11 15:53 | Outpatient (AMB) | payer OTHER, SELFPAY ==
--- NOTE | 2024-01-11 15:57 | MHC.OFFVIS ---
Vital Signs 01/11/24 15:58 Height 5 ft 9 in Weight 145 lb 8.081 oz BMI 21.5 BP 121/72 Blood Pressure Location Lt brachial Position Sitting Pulse 88 Intake Visit Reasons: f/u us Intake Note: Miguel presents in the office as a follow up Ultrasound. CC: He is here for the results. HE states he wants more information on his situation. Reclamation Supervisor Required: Yes Reclamation Supervisor Name: Jay [id number] Allergies No Known Allergies Allergy (Verified 01/11/24 15:58) HPI Comments Details: 22 y.o M with PMH of large TVA who is here for follow up. 12/04/22: Pt reports having bleeding from rectum x 1 year. Apr 2021: Had a colo which showed a large polyp in the rectum ?? 5 cm in size per the report from which biopsies were taken. Path showed tubullovillous adenoma. May 2021: subsequently had surgical resection of that polyp through Dr Hollis Mann (colorectal surgery). Was asked to return within a year for repeat colo. June 2022: Focal redness in rectum spanning 5-7 cm (vs 5-7 cm from anal verge - unclear based on wording) which was biopsied - chronic mild nonspecific colitis. Was prescribed tylenol and 3 days of dexamethasone 0.5mg - which the pt says he was told it was for healing but has not been on any snf steroids. Currently, does not report any abd pain, rectal pain, blood on defecation. Has formed BMs 1-2 times a day. No night time sx. No urgency. Labs from last month without any anemia. Fam hx of CRC in uncle but not in first degree relatives. No fam hx of UC or IBD in FDRs. 02/06/23: [place] (Dr Castañeda) internal hemorrhoids normal appearing mucosa, await bx results Path: A. Terminal ileum, biopsy: Terminal ileal mucosa within normal limits. B. Colon, transverse, biopsy: Colonic mucosa within normal limits. C. Colon, left, biopsy: Colonic mucosa within normal limits. D. Rectum, biopsy: Rectal mucosa within normal limits. COMMENT: No dysplasia is identified 04/09/23: Reports no lower GI sx such as diarrhea or blood in stool. Reports occasional abdominal discomfort ajit on right side assoc with bloating that is typically postprandial. No NSAID use. Pain goes away after passing gas or BM. 01/11/24: Pt here for further clarification on gallbladder polyp as he was unsure over the phone if his colon polyp also needed a review. Pt was reassured not due for a repeat flex sig till at least 2027. Gallbladder polyp size is unchanged. Repeat US due Nov 2024. [facility] Medical History Ulcerative colitis with rectal bleeding Surgical History Hx of sigmoidoscopy Hx of colonoscopy Family History Father Diabetes Maternal Uncle Colon cancer Social History Household Members: Family Housing: House Alcohol intake: never Patient Tobacco Use Status: Never used Tobacco e-Cigarette/Vaping Use: Never Used service: No Current occupational status: unemployed Cognitive needs: No Hearing needs: No Vision needs: No Review of Systems Const All systems reviewed & are unremarkable except as noted in HPI and below Physical Exam Vital Signs: Last Vital Signs Pulse 88 01/11/24 15:58 BP 121/72 01/11/24 15:58 BMI result Body Mass Index 21.5 No apparent distress Nonicteric Abdomen soft, nondistended Alert and oriented x3, normal gait Assessment & Plan Assessment & Plan (1) Villous adenoma: Code(s): D48.9 - Neoplasm of uncertain behavior, unspecified Category: Medical Plan: Recommend repeat flex sig by end of 2027. If no recurrence, can then resume normal screening times and intervals. (2) Gallbladder polyp: Code(s): K82.4 - Cholesterolosis of gallbladder Category: Medical Plan: 3 mm GB polyp incidentally noted on US done in Apr 2023 for RUQ pain. Pain has since resolved. Repeat US last month without a change in size. Plan: - reminder set for repeat US in Nov 2024. Plan Follow up 1y Coding Level of Care Code Est Pt Level 3 (15406) Diagnoses Villous adenoma D48.9 Gallbladder polyp K82.4
[2024-01-11 15:58] VITALS: BP 121/72; PULSE 88; BMI 21.5
== END 2024-01-11 16:18 | disposition home or self-care (01) ==
PROVIDERS: PCP Nurse Practitioner Family; Visit Provider Internal Medicine
DX: D48.9 Neoplasm of uncertain behavior, unspecified (principal); K82.4 Cholesterolosis of gallbladder
CPT/HCPCS: 99213

== ENCOUNTER → 2024-01-11 15:53 | Outpatient (BNVA) | payer OTHER, SELFPAY | PROVIDERS: PCP Nurse Practitioner Family; Visit Provider Internal Medicine | DX: D48.9 Neoplasm of uncertain behavior, unspecified (principal); K82.4 Cholesterolosis of gallbladder | CPT/HCPCS: 99212 ==

== ENCOUNTER 2024-05-06 12:51 | Outpatient (AMB) | payer OTHER, SELFPAY ==
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
[2024-05-06 13:04] VITALS: BP 128/65; PULSE 81; RESP 16; TEMP 36.8; O2SAT 99; BMI 23.3
== END 2024-05-06 14:50 | disposition home or self-care (01) ==
PROVIDERS: PCP Nurse Practitioner Family; Visit Provider Nurse Practitioner Family
DX: M25.562 Pain in left knee (principal)

== ENCOUNTER → 2024-05-06 12:51 | Outpatient (BNVA) | payer OTHER, SELFPAY | PROVIDERS: PCP Nurse Practitioner Family; Visit Provider Nurse Practitioner Family | DX: M25.562 Pain in left knee (principal) | CPT/HCPCS: 99202 ==

== ENCOUNTER 2024-12-23 08:05 | Outpatient (REF) | payer OTHER, SELFPAY ==
--- NOTE | ~2024-12-23 | US_ITS ---
CLINICAL HISTORY: K82.4 - Cholesterolosis of gallbladder US abdomen limited with color Doppler Comparison: US/DE/SR - US ABDOMEN LIMITED - 11/07/23 08:29 EDT US/SR - US ABDOMEN - 04/12/23 08:33 EST Findings: Visualized pancreas is normal. Tail obscured by bowel gas. Liver is normal in size with normal echotexture Right lobe length 11.8 cm. No focal hepatic masses. Common duct 3.0 value mm diameter. Gallbladder is physiologically distended. No gallstones demonstrated. Anequivocal less than 2 mm gallbladder polyp was demonstrated on cine images. No gallbladder wall thickening. No pericholecystic fluid. No sonographic Whalen sign. Main portal vein antegrade. Right kidney measures, 10.4 cm in length. Normal cortical width and echotexture. No hydronephrosis calculus or mass. Impression: 1. Equivocal less than 2 mm gallbladder polyp demonstrated on cine images. This document has been electronically signed by: Tung Zamora MD on 12/24/2024 11:42:23
== END 2024-12-23 08:06 | disposition home or self-care (01) ==
LOC: HO.US 08:05
PROVIDERS: PCP Nurse Practitioner Family; Visit Provider Internal Medicine
DX: K82.4 Cholesterolosis of gallbladder (principal)
CPT/HCPCS: 76705

== ENCOUNTER → 2024-12-23 08:19 | Outpatient (BNV) | payer OTHER, SELFPAY | PROVIDERS: PCP Nurse Practitioner Family; Visit Provider Radiology Diagnostic Radiology | DX: K82.4 Cholesterolosis of gallbladder (principal) | CPT/HCPCS: 76705 ==

== ENCOUNTER 2025-02-04 12:39 | Outpatient (REF) | payer OTHER, SELFPAY ==
[2025-02-04 15:10] LABS: Alanine Aminotransferase 38 U/L (0-40); Albumin Level 5.1 g/dL (3.5-5.0); Alkaline Phosphatase 79 U/L (39-117); Aspartate Amino Transferase 27 U/L (5-37); Total Protein 7.7 g/dL (6.5-8.0)
== END 2025-02-04 12:40 | disposition home or self-care (01) ==
LOC: HO.LAB 12:39
PROVIDERS: PCP Nurse Practitioner Family; Visit Provider Internal Medicine
DX: K82.4 Cholesterolosis of gallbladder (principal); D48.9 Neoplasm of uncertain behavior, unspecified; R14.0 Abdominal distension (gaseous); R10.11 Right upper quadrant pain
CPT/HCPCS: 36415; 80076; 99212

== ENCOUNTER 2025-02-04 12:39 | Outpatient (AMB) | payer OTHER, SELFPAY ==
--- NOTE | 2025-02-04 12:41 | A.OFFVIS_ITS ---
Vital Signs 02/04/25 12:44 Height 5 ft 9 in Weight 163 lb 2.273 oz BMI 24.1 BP 135/77 Pulse 90 Intake Visit Reasons: 1 year f/u gall bladder polyp Intake Note: Miguel presents in the office as a 1 year follow up for gall bladder polyp. CC: States that he here for a follow up - same symptoms and still having the pains in gall bladder on the RLQ Principal System Software Engineer Required: Yes Principal System Software Engineer Name: [id number] [phone] [id number] [id number] Allergies No Known Allergies Allergy (Verified 05/06/24 13:10) HPI Comments Details: 22 y.o M with PMH of large TVA who is here for follow up. 12/04/22: Pt reports having bleeding from rectum x 1 year. Apr 2021: Had a colo which showed a large polyp in the rectum ?? 5 cm in size per the report from which biopsies were taken. Path showed tubullovillous adenoma. May 2021: subsequently had surgical resection of that polyp through Dr Hollis Mann (colorectal surgery). Was asked to return within a year for repeat colo. June 2022: Focal redness in rectum spanning 5-7 cm (vs 5-7 cm from anal verge - unclear based on wording) which was biopsied - chronic mild nonspecific colitis. 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 Currently, does not report any abd pain, rectal pain, blood on defecation. Has formed BMs 1-2 times a day. No night time sx. No urgency. Labs from last month without any anemia. Fam hx of CRC in uncle but not in first degree relatives. No fam hx of UC or IBD in FDRs. 02/06/23: [place] (Dr Castañeda) internal hemorrhoids normal appearing mucosa, await bx results Path: A. Terminal ileum, biopsy: Terminal ileal mucosa within normal limits. B. Colon, transverse, biopsy: Colonic mucosa within normal limits. C. Colon, left, biopsy: Colonic mucosa within normal limits. D. Rectum, biopsy: Rectal mucosa within normal limits. COMMENT: No dysplasia is identified 04/09/23: Reports no lower GI sx such as diarrhea or blood in stool. Reports occasional abdominal discomfort ajit on right side assoc with bloating that is typically postprandial. No NSAID use. Pain goes away after passing gas or BM. 01/11/24: Pt here for further clarification on gallbladder polyp as he was unsure over the phone if his colon polyp also needed a review. Pt was reassured not due for a repeat flex sig till at least 2027. Gallbladder polyp size is unchanged. Repeat US due Nov 2024. 02/04/25: Here for follow up. Seen with video parts interpreter. Reports intermittent post prandial pain ajit after greasy food that he had over the holiday. Pain was primarily in epigastrium assoc with nausea and belching. Lasted few minutes and then went away on its own. COUNT INCLUDES THE [facility] Medical History Ulcerative colitis with rectal bleeding Surgical History Hx of sigmoidoscopy Hx of colonoscopy Family History Father Diabetes Maternal Uncle Colon cancer Social History Household Members: Family Housing: House Alcohol intake: never Patient Tobacco Use Status: Never used Tobacco e-Cigarette/Vaping Use: Never Used service: No Current occupational status: unemployed Cognitive needs: No Hearing needs: No Vision needs: No Review of Systems Const All systems reviewed & are unremarkable except as noted in HPI and below Physical Exam Exam Exam: No apparent distress Nonicteric Abdomen soft, nondistended Alert and oriented x3, normal gait Vital Signs: Last Vital Signs Pulse 90 02/04/25 12:44 BP 135/77 02/04/25 12:44 BMI result Body Mass Index 24.1 Assessment & Plan Assessment & Plan (1) Villous adenoma: Code(s): D48.9 - Neoplasm of uncertain behavior, unspecified Category: Medical Plan: Recommend repeat flex sig by end 2027. If no recurrence, can then resume normal screening times and intervals. (2) Gallbladder polyp: Code(s): K82.4 - Cholesterolosis of gallbladder Category: Medical Plan: 3 mm GB polyp incidentally noted on US done in Apr 2023 for RUQ pain. No change in size on most recent US. Plan: - Repeat US in 3 years as per guidelines. Reminder set. (3) Postprandial abdominal bloating: Code(s): R14.0 - Abdominal distension (gaseous) Category: Medical Plan: Reviewed wiht the pt that fleeting pain lasting a few minutes is unlikely to be GB related or luminal. However will get LFTs and HIDA scan for evaluation. Plan Follow up if actionable findings on above Orders: Orders NM hepatobiliary w pharm Today R14.0 - Abdominal distension (gaseous) Liver Panel Today R10.11 - Right upper quadrant pain Medications: Discontinued naproxen Discontinued Reason: Patient Completed Course 500 mg PO BID PRN 30 tabs 0RF pain Patient Instructions: - Pls get blood work done today. No fasting needed. - Radiology dept will call you for the HIDA scan. - You will be due in 2027 for your next ultrasound and colonoscopy Coding Level of Care Code Est Pt Level 4 (62000) Diagnoses Villous adenoma D48.9 Gallbladder polyp K82.4 Postprandial abdominal bloating R14.0
[2025-02-04 12:44] VITALS: BP 135/77; PULSE 90; BMI 24.1
== END 2025-02-04 13:19 | disposition home or self-care (01) ==
LOC: HO.HGI 12:40
PROVIDERS: PCP Nurse Practitioner Family; Visit Provider Internal Medicine
DX: D48.9 Neoplasm of uncertain behavior, unspecified (principal); K82.4 Cholesterolosis of gallbladder; R14.0 Abdominal distension (gaseous)
CPT/HCPCS: 99214

== ENCOUNTER → 2025-02-23 07:53 | Outpatient (REF) | payer OTHER, SELFPAY ==
--- NOTE | ~2025-02-23 | NM_ITS ---
EXAMINATION: NM BILIARY TRACT CLINICAL INFORMATION: K82.4 - Cholesterolosis of gallbladder R14.0 - Abdominal distension (gaseous) COMPARISON: Ultrasound on 12/23/2024 Radioparhmaceutical: 5mCi technetium 99m labeled mebrofenin Other medications: 1.5mcg CCK infused IV over 30 minutes , one hour post injection of mebrofenin (a.k.a. Choletec) TECHNIQUE: Hepatobiliary scintigraphy was performed after the intravenous administration of technetium 99m labeled Choletec. Imaging was performed every 2 minutes for 60 minutes after which, CCK was infused IV over 30 minutes with imaging continuing for an additional 30minutes. Ejection fraction curve was generated with a region of interest placed over the gallbladder. FINDINGS: After Choletech injection, there is prompt uptake of radiotracer by the liver. Intrahepatic biliary filling was visible within 8 minutes and gallbladder filling was visible within 10minutes. Small bowel filling was noted within 14minutes. After CCK infusion, ejection fraction measured 16%. NM/NM hepatobiliary w pharm IMPRESSION: Low gallbladder ejection fraction can be related to biliary dyskinesia or chronic acalculous cholecystitis. Electronically signed by: Yannick Corbin MD 02/23/2025 10:24 AM [facility]
== END ==
LOC: HO.NUCMED 07:53
PROVIDERS: PCP Nurse Practitioner Family; Visit Provider Internal Medicine
DX: R14.0 Abdominal distension (gaseous) (principal)
CPT/HCPCS: 78227; A9537; J2805

== ENCOUNTER → 2025-02-23 07:55 | Outpatient (BNV) | payer OTHER, SELFPAY | PROVIDERS: PCP Nurse Practitioner Family; Visit Provider Radiology Diagnostic Radiology | DX: R14.0 Abdominal distension (gaseous) (principal); K82.8 Other specified diseases of gallbladder | CPT/HCPCS: 78227 ==